=== PATIENT | male | born 1940 | race Caucasian/White ===

== ENCOUNTER 2018-10-17 06:24 | Inpatient (IN) | payer OTHER ==
[~2018-10-17] VITALS: Ht 170.2 cm; Wt 73.7 kg
[2018-10-17 06:27] VITALS: Ht 170.2 cm; Wt 73.7 kg
[2018-10-17 07:13] LABS: BASOPHIL % 0.3 % (0-2); PLATELET COUNT 179 x10^3mcL (130-400)
[2018-10-17 07:15] LABS: CALCIUM 8.5 mg/dL (8.5-10.1); CARBON DIOXIDE 24.5 mmol/L (21-32); CHLORIDE SERUM 105 mmol/L (98-107); GLUCOSE SERUM 138 mg/dL (74-106); POTASSIUM SERUM 3.5 mmol/L (3.5-5.1); SODIUM SERUM 140 mmol/L (136-145)
[2018-10-17 07:16] LABS: RED CELL DISTRIBUTION WIDTH 16.2 % (11.5-14.5)
[2018-10-17 07:19] LABS: ALBUMIN 2.8 g/dL (3.4-5.0); ALKALINE PHOSPHATASE 127 U/L (46-116); ALT/SGPT 48 U/L (16-63); AST/SGOT 47 U/L (15-37); BILIRUBIN TOTAL 0.3 mg/dL (0.20-1.00); LIPASE 1121 IU/L (73-393); TOTAL PROTEIN, SERUM 6.6 g/dL (6.4-8.2)
[2018-10-17 10:59] LABS: BASOPHIL % 0.1 % (0-2); PLATELET COUNT 131 x10^3mcL (130-400)
[2018-10-17] MEDS ORDERED: NOR5 PO (11:34)
[2018-10-17 12:36] VITALS: BP 125/54
[2018-10-17] MEDS ORDERED: DORZOLAMIDE HYD10 ML OD (17:30)
[2018-10-17] MEDS ORDERED: XALATAN2.5 ML OU (17:30)
[2018-10-17 18:15] VITALS: BP 137/55
[2018-10-17 20:56] VITALS: BP 130/60
[2018-10-18 05:44] VITALS: BP 111/54
[2018-10-18 06:17] LABS: CALCIUM 8.2 mg/dL (8.5-10.1); CARBON DIOXIDE 25.7 mmol/L (21-32); CHLORIDE SERUM 108 mmol/L (98-107); CREATININE SERUM 1.1 mg/dL (0.7-1.3); GLUCOSE SERUM 96 mg/dL (74-106); POTASSIUM SERUM 4.5 mmol/L (3.5-5.1); SODIUM SERUM 140 mmol/L (136-145)
[2018-10-18 07:38] LABS: BASOPHIL % 0.2 % (0-2); PLATELET COUNT 140 x10^3mcL (130-400); RED CELL DISTRIBUTION WIDTH 16.4 % (11.5-14.5)
[2018-10-18 10:00] VITALS: BP 113/56
[2018-10-18 18:51] VITALS: BP 130/55
[2018-10-18 20:39] VITALS: BP 142/51
[2018-10-19 05:54] VITALS: BP 127/49
[2018-10-19 08:00] VITALS: BP 134/53
[2018-10-19 11:40] VITALS: BP 121/55
[2018-10-19 12:30] VITALS: BP 133/58
== END 2018-10-19 14:04 | disposition home or self-care (01) | DRG 377 ==
LOC: ED 06:24 → DU 10:30
PROVIDERS: Emergency Medicine; Internal Medicine; ADMIT Internal Medicine
PROC: 0DB68ZX Excision of Stomach, Via Natural or Artificial Opening Endoscopic, Diagnostic (ICD-10-PCS; principal; 2018-10-18 08:30)
PROC: 0DBM8ZZ Excision of Descending Colon, Via Natural or Artificial Opening Endoscopic (ICD-10-PCS; 2018-10-19 12:30)
PROC: 0DBN8ZZ Excision of Sigmoid Colon, Via Natural or Artificial Opening Endoscopic (ICD-10-PCS; 2018-10-19 12:30)
DX: K29.71 Gastritis, unspecified, with bleeding (principal); K85.90 Acute pancreatitis without necrosis or infection, unspecified; I85.00 Esophageal varices without bleeding; E86.0 Dehydration; D12.4 Benign neoplasm of descending colon; D12.5 Benign neoplasm of sigmoid colon; I10 Essential (primary) hypertension; D64.9 Anemia, unspecified; Z68.25 Body mass index [BMI] 25.0-25.9, adult; Z86.010 Personal history of colon polyps
CPT/HCPCS: 43235; 45378; C9113; J1200; J1610; J2250; J2310; J2405; J2543; J3010; J3490; J7030; Q0092

== ENCOUNTER 2019-05-20 12:46 | Emergency (ER) | payer OTHER ==
[~2019-05-20] VITALS: Ht 172.7 cm; Wt 68.0 kg
[~2019-05-20 12:46] MED LIST: DORZOLAMIDE HYD10 ML OD; NOR5 PO; XALATAN2.5 ML OU
[2019-05-20 12:54] VITALS: Ht 172.7 cm; Wt 68.0 kg
[2019-05-20 13:09] LABS: PLATELET COUNT 104 x10^3mcL (130-400); RED CELL DISTRIBUTION WIDTH 16.4 % (11.5-14.5)
[2019-05-20 13:20] LABS: ALKALINE PHOSPHATASE 108 U/L (46-116); ALT/SGPT 37 U/L (16-63); AST/SGOT 27 U/L (15-37); BILIRUBIN TOTAL 0.5 mg/dL (0.20-1.00); CALCIUM 8.4 mg/dL (8.5-10.1); CARBON DIOXIDE 26.9 mmol/L (21-32); CHLORIDE SERUM 105 mmol/L (98-107); CREATININE SERUM 0.9 mg/dL (0.7-1.3); GLUCOSE SERUM 117 mg/dL (74-106); POTASSIUM SERUM 4.4 mmol/L (3.5-5.1); SODIUM SERUM 141 mmol/L (136-145)
[2019-05-20 13:21] LABS: ALBUMIN 3.1 g/dL (3.4-5.0)
[2019-05-20 13:38] LABS: BAND NEUTROPHIL 1 % (0-10); BASOPHIL 0 % (0-2); MONOCYTE 6 % (0-7); SEGMENTED NEUTROPHILS 69 % (37-75)
[2019-05-20 13:41] LABS: PLATELET MORPHOLOGY PLATELETS NORMAL; rbc morphology (normal/abnorm) NORMAL (NORMAL)
[2019-05-20 16:35] VITALS: BP 133/61
== END 2019-05-20 16:35 | disposition home or self-care (01) ==
LOC: ED 12:46
DX: R55 Syncope and collapse (principal); D61.818 Other pancytopenia; I10 Essential (primary) hypertension; T67.5XXA Heat exhaustion, unspecified, initial encounter; X58.XXXA Exposure to other specified factors, initial encounter; Y93.89 Activity, other specified; Y92.89 Other specified places as the place of occurrence of the external cause; Y99.8 Other external cause status
CPT/HCPCS: J7030; Q0092

== ENCOUNTER 2019-05-23 13:06 | Emergency (ER) | payer OTHER ==
[~2019-05-23] VITALS: Ht 175.3 cm; Wt 71.2 kg
[2019-05-23 13:12] VITALS: Ht 175.3 cm; Wt 71.2 kg
[2019-05-23 13:53] LABS: BASOPHIL % 0.2 % (0-2)
[2019-05-23 13:55] LABS: PLATELET COUNT 107 x10^3mcL (130-400); RED CELL DISTRIBUTION WIDTH 16.4 % (11.5-14.5)
[2019-05-23 13:59] LABS: CALCIUM 7.8 mg/dL (8.5-10.1); CARBON DIOXIDE 26.7 mmol/L (21-32); CHLORIDE SERUM 105 mmol/L (98-107); CREATININE SERUM 0.9 mg/dL (0.7-1.3); GLUCOSE SERUM 124 mg/dL (74-106); POTASSIUM SERUM 4.3 mmol/L (3.5-5.1); SODIUM SERUM 138 mmol/L (136-145)
[2019-05-23 14:06] LABS: ALBUMIN 3.4 g/dL (3.4-5.0); ALKALINE PHOSPHATASE 117 U/L (46-116); ALT/SGPT 30 U/L (16-63); AST/SGOT 24 U/L (15-37); BILIRUBIN TOTAL 0.42 mg/dL (0.20-1.00); TOTAL PROTEIN, SERUM 7.4 g/dL (6.4-8.2)
[2019-05-23 16:23] LABS: RED BLOOD CELLS 3.34 M/mm3 (4.52-5.90)
[2019-05-23 16:40] LABS: PHOSPHOROUS 2.9 mg/dL (2.5-4.9)
[2019-05-23 16:43] LABS: CHOLESTEROL/HDL RATIO 2.7
[2019-05-23 18:27] VITALS: BP 134/59
== END 2019-05-23 18:27 | disposition home or self-care (01) ==
LOC: ED 13:06
PROVIDERS: Emergency Medicine; Internal Medicine
DX: R42 Dizziness and giddiness (principal); D64.9 Anemia, unspecified; I10 Essential (primary) hypertension
CPT/HCPCS: J2405; J7030; J8597

== ENCOUNTER 2019-10-14 07:10 | Emergency (ER) | payer OTHER ==
[2019-10-14 07:19] VITALS: Ht 175.3 cm
[2019-10-14 07:57] LABS: BASOPHIL % 0.4 % (0-2); PLATELET COUNT 273 x10^3mcL (130-400); RED CELL DISTRIBUTION WIDTH 19.6 % (11.5-14.5)
[2019-10-14 08:03] LABS: CALCIUM 7.9 mg/dL (8.5-10.1); CARBON DIOXIDE 25.1 mmol/L (21-32); CHLORIDE SERUM 108 mmol/L (98-107); CREATININE SERUM 0.8 mg/dL (0.7-1.3); GLUCOSE SERUM 113 mg/dL (74-106); POTASSIUM SERUM 4.2 mmol/L (3.5-5.1); SODIUM SERUM 142 mmol/L (136-145)
[2019-10-14 08:14] LABS: ALKALINE PHOSPHATASE 137 U/L (46-116); ALT/SGPT 27 U/L (16-63); AST/SGOT 27 U/L (15-37); BILIRUBIN TOTAL 0.34 mg/dL (0.20-1.00); LIPASE 205 IU/L (73-393); T4(THYROXINE) 7.5 ug/dL (4.7-13.3)
[2019-10-14 08:16] LABS: ALBUMIN 2.3 g/dL (3.4-5.0); CHOLESTEROL 90 mg/dL (<200); HDL CHOLESTEROL 26 mg/dL (40-60)
[2019-10-14 11:24] LABS: microscopic required? NO
[2019-10-14 11:33] LABS: urine erythrocyte NEGATIVE (NEGATIVE)
[2019-10-14 11:39] VITALS: BP 120/64
[2019-10-14 12:41] LABS: AMPHETAMINE QUAL UR NONE DETECTED (See below)
[2019-10-14] MEDS ORDERED: PRESERVISION A1 EACH PO (14:34)
[2019-10-14] MEDS ORDERED: THE MEDICINE S400 I1 PO (14:34)
[2019-10-14] MEDS ORDERED: APAP500 MG PO (14:35)
[2019-10-14] MEDS ORDERED: CENTRUM SILVER1 EAC4 PO (14:35)
[2019-10-14] MEDS ORDERED: VIDAZA100 MG SC (14:36)
== END 2019-10-14 11:39 | disposition home or self-care (01) ==
LOC: ED 07:10
PROVIDERS: Emergency Medicine
DX: R53.1 Weakness (principal); R55 Syncope and collapse; D64.9 Anemia, unspecified; I10 Essential (primary) hypertension; I44.7 Left bundle-branch block, unspecified; Z85.830 Personal history of malignant neoplasm of bone
CPT/HCPCS: 36600; 83880; 87804; G0480; J1885; Q0092

== ENCOUNTER 2019-10-14 12:37 | Inpatient (IN) | payer OTHER ==
[~2019-10-14] VITALS: Ht 177.8 cm; Wt 76.2 kg
--- NOTE | 2019-10-14 13:06 | NUR ---
LAB DRAW IN PROGRESS.
--- NOTE | 2019-10-14 13:28 | NUR ---
PT VOMITING BRIGHT RED BLOOD WITH BIG MULTIPLE CLOTS. MD NOTIFIED AT THIS TIME.
--- NOTE | 2019-10-14 13:30 | NUR ---
REPORT ON PT GIVEN TO WAI SALOMON RN AT THIS TIME. FAMILY AT BEDSIDE
[2019-10-14 13:45] LABS: BASOPHIL % 0.3 % (0-2); PLATELET COUNT 291 x10^3mcL (130-400)
[2019-10-14 13:53] LABS: RED CELL DISTRIBUTION WIDTH 19.9 % (11.5-14.5)
--- NOTE | 2019-10-14 14:01 | NUR ---
BLOOD ADMINSTRATION INITIATED, DOTTY THURMAN.
--- NOTE | 2019-10-14 14:02 | NUR ---
PT ON FULL CM, FAMILY AT BEDSIDE.
[2019-10-14] MEDS ORDERED: PRESERVISION A1 EACH PO (14:34)
[2019-10-14] MEDS ORDERED: THE MEDICINE S400 I1 PO (14:34)
[2019-10-14] MEDS ORDERED: CENTRUM SILVER1 EAC4 PO (14:35)
[2019-10-14] MEDS ORDERED: APAP500 MG PO (14:35)
[2019-10-14] MEDS ORDERED: VIDAZA100 MG SC (14:36)
--- NOTE | 2019-10-14 14:36 | NUR ---
BLOOD TRANSFUSION COMPLETED, PT RESINT ON ED GURNEY, NO VOMITING AT THIS TIME, ON FULL CM, EQUAL CHEST RISE AND FALL. EDIL AND DAUGHTER PITO AT BEDSIDE.
--- NOTE | 2019-10-14 14:38 | NUR ---
PT STS PT'S LAST ONCOLOGIST VISIT WAS ON 09/30/19, LAST CHEMO OF VIDAZA WAS ON 09/23/19.
--- NOTE | 2019-10-14 15:30 | NUR ---
PT ASSISTED ONTO BEDPAN AND WITH URINAL, NO BM, APPROX 150CC OF DARK YELLOW URINE VOIDED.
--- NOTE | 2019-10-14 15:42 | NUR ---
PER MIGUEL ÁNGEL FROM BLOOD BANK, BLOOD FOR PT WILL BE READY IN APPROX 45 MINS. KRISTIN ICU NURSE MADE AWARE. DR STUBBS MADE AWARE.
--- NOTE | 2019-10-14 15:51 | NUR ---
PT VOMITING BLODDY EMESIS AT THIS TIME WITH APPROX 400CC WITH CLOTS.
[2019-10-14 16:21] VITALS: BP 122/47
[2019-10-14 17:29] VITALS: BP 1114/53; BP 114/53
[2019-10-14 17:45] VITALS: BP 122/59
--- NOTE | 2019-10-14 17:49 | NUR ---
AT 1600 - RECEIVED PATIENT FROM ER NURSE. SETTLED IN ROOM AND ORIENTED TO SURROUNDINGS AND PLACED ON CARDIAC MONITORING. ADMITTED WITH GI BLEED. PATIENT IS AWAKE, ALERT AND ORIENTED X 4 BUT APPEARS FORGETFUL. ABLE TO ANSWER QUESTIONS. HISTORY AND ASSESSMENT OBTAINED FROM PATIENT. BP STABLE AT THIS TIME. RESPIRATIONS REGULAR. O2 SAT 99% ON ROOM AIR. MONITOR SHOWING SINUS RHYTHM; RATE 98%. ABDOMEN SOFT. C/O ABDOMINAL PAIN /. NO C/O NAUSEA AT THIS TIME. AT 1615 - CHARGE NURSE SPOKE WITH DR LUCAS PER PHONE AND OBTAINED ADMISSION ORDERS. PATIENT TO RECEIVE ONE MORE UNIT OF BLOOD AND THEN H/H TO BE CHECKED. MRSA NARES COLLECTED AND TAKEN TO LAB. AT 1654 - MEDICATED WITH IV MORPHINE 1 MG PER EMAR FOR ABDOMINAL PAIN. FAMILY MEMBERS AT BEDSIDE. TODAY IS PATIENT'S BIRTHDAY. AT 1716 - MEDICATED WITH IV ZOFRAN FOR NAUSEA. AT 1730 - COMMENCED BLOOD TRANSFUSION OF PRBC. THIS IS PATIENT'S SECOND UNIT. AT 1745 - SEEN BY DR ROCK. EXAMINED PATIENT AND SPOKE WITH FAMILY AT LENGTH REGARDING PLAN OF TREATMENT.
[2019-10-14 18:30] VITALS: BP 117/60
--- NOTE | 2019-10-14 19:00 | NUR ---
RECIEVED REPORT FROM WATCH REPAIRER. NURSING UPDATES POC DISCUSSED. SEE SHIFT ASSESSMENT FOR ASSESSMENT.
--- NOTE | 2019-10-14 19:26 | NUR ---
AT 1800 - DR ROCK SPOKE WITH FAMILY ABOUT PLAN FOR EGD TOMORROW. PATIENT'S DAUGHTER SIGNED CONSENTS FOR EGD AND MODERATE SEDATION. AT 1815 - COMMENCED ON ROCEPHIN. FIRST DOSE IN PROGRESS. AT 1840 - PATIENT PLACED ON BEDPAN FOR SENSATION OF NEED TO HAVE BOWEL MOVEMENT. NOT ABLE TO HAVE BM AT THIS TIME. AT 1900 - ULTRASOUND AT BEDSIDE FOR ABDOMINAL U/S. AT 1910 - COMMENCED ON SANDOSTATIN INFUSION AT 50 MCG /HR IN RAC. BLOOD TRANSFUSION CONTINUING IN LAC. VS REMAIN STABLE. CARE ENDORSED TO NIGHT NURSE. AT 1920 - WHILST TURNING IN BED FOR ULTRASOUND REQUIREMENTS, PATIENT VOMITED BRIGHT BLOOD. REIMBURSEMENT LIAISON COMPLETING ULTRASOUND. NIGHT NURSE AT BEDSIDE.
--- NOTE | 2019-10-14 19:30 | NUR ---
PT W/ BLOODY CLOTTED EMESIS ESTIMATED @ 200ML. ROOM CLEANED AND LINENS CHANGED.
[2019-10-14 20:05] VITALS: BP 117/60
--- NOTE | 2019-10-14 21:26 | NUR ---
ADM PRN MORPHINE PER PT STATING RUBY 04/14 ABD GENERALIZED. CALMING MEASURES ATTEMPTED W/ NO AVAIL. WILL CONT TO MONITOR.
--- NOTE | 2019-10-14 22:12 | NUR ---
DAUGHTER KARELY NOTIFIED TO CALL IF ANYTHING HAPPENS. STATED WILL BE BACK AT 0900 10/15. [phone].
--- NOTE | 2019-10-14 23:02 | NUR ---
PT COMPLAINING OF "REALLY BAD" TOOTH PAIN. STATED THAT WHATEVER THEY GAVE HIM IN ER HELPED RELIEF AND THAT THE MORPHINE HAS NOT HELPED. ADM LAST MALHOTRA SEE MAR.
[2019-10-14 23:20] VITALS: BP 131/58
--- NOTE | 2019-10-15 00:07 | NUR ---
REPORT GIVEN TO DRY CLEANING SUPERVISOR. NURSING UPDATES. POC DISCUSSED. RELIEVED OF PT DUTIES.
--- NOTE | 2019-10-15 00:18 | NUR ---
RECEIVED PATIENT IN BED APPEAR TO BE SLEEPING WITH NO INDICATION OF PAIN AND DISCOMFORT NOTED, MORPHINE 1MG IVP GIVEN EARLIER BY WRAPPER OPENER NELSON. REPORT GIVEN. WILL CONTINUE TO MONITOR.
--- NOTE | 2019-10-15 03:52 | NUR ---
AWAKE THIS TIME DENIES PAINA ND DISCOMFORT. VOIDED WITH USED OF URINAL AROUND 350ML. WILL CONTINUE TO MONITOR.
[2019-10-15 04:06] VITALS: BP 124/46
--- NOTE | 2019-10-15 05:16 | NUR ---
HAD BM LOOSE CHARCOAL LIKE COLOR IN LARGE AMOUNT. KEPT ON NPO. CHECKED AT INTERVALS FOR NEEDS AND SAFETY. REPOSITIONED FOR COMFORT.
[2019-10-15 05:46] LABS: CARBON DIOXIDE 21.5 mmol/L (21-32); CHLORIDE SERUM 116 mmol/L (98-107); GLUCOSE SERUM 139 mg/dL (74-106); POTASSIUM SERUM 4.5 mmol/L (3.5-5.1); SODIUM SERUM 146 mmol/L (136-145)
[2019-10-15 05:47] LABS: BASOPHIL % 0.3 % (0-2)
[2019-10-15 05:48] LABS: PLATELET COUNT 474 x10^3mcL (130-400); RED CELL DISTRIBUTION WIDTH 24.8 % (11.5-14.5)
--- NOTE | 2019-10-15 06:47 | NUR ---
H/H-7.3/, I UNIT PRBC STARTED PER DR LUCAS'S ORDER. NO ADVERSE REACTION NOTED. VITAL SIGNS TAKEN AND RECORDED. BP-115/65, T-98.4, HR-97, R-18 SATTING AT 100% RA. WILL ENDORSE CONTINOUS MONITORING TO AM SHIFT.
[2019-10-15 07:30] VITALS: BP 139/68
--- NOTE | 2019-10-15 07:30 | NUR ---
RECEIVED PT RESTING IN BED. SLEEPING BUT EASILY AROUSABLE. RESP EVEN AND UNLABORED ON RA. NO PAIN NOTED. BOWEL SOUNDS ACTIVE, ABD SOFT, NON-TENDER. NO BM NOTED AT THIS TIME. NPO EXCEPT MEDS. VOIDING FREELY. BLOOD TRANSFUSION INFUSING TO LAC AT 100 ML/HR, NO REDNESS OR SWELLING TO IV SITE. NO ADVERSE REACTIONS NOTED AT THIS TIME. SANDOSTATIN INFUSING AT 25 ML/HR TO RAC, NO REDNESS OR SWELLING NOTED. GEN WEAKNESS, ABLE TO REPOSITION SELF IN BED. PALE SKIN. HOB SLIGHTLY ELEVATED. BED IN LOW POSITION, CALL LIGHT WITHIN REACH. WILL CONTINUE TO MONITOR.
--- NOTE | 2019-10-15 08:36 | NUR ---
GI LAB STAFF AT BEDSIDE, PT GETTING EGD DONE AT THIS TIME. NO ACUTE DISTRESS. WILL CONTINUE TO MONITOR.
--- NOTE | 2019-10-15 09:02 | NUR ---
EGD DONE AT THIS TIME. PT IN NO ACUTE DISTRESS. RESTING IN BED. RESP EVEN AND UNLABORED ON 2L NC. NO PAIN NOTED. PRBC INFUSING AT 100 ML/HR AND SANDOSTATIN INFUSING AT 25 ML/HR, NO REDNESS OR SWELLING TO IV SITE. HOB ELEVATED. CALL FALL PRECAUTIONS. WILL CONTINUE TO MONITOR.
[2019-10-15 10:00] VITALS: BP 152/78
--- NOTE | 2019-10-15 10:00 | NUR ---
PRBC TRANSFUSION DONE. NO ADVERSE REACTIONS NOTED. PT RESTING IN BED. NO ACUTE DISTRESS. AAOX4. RESP EVEN AND UNLABORED ON 2L NC. VS: TEMP 96.8, HR 95, RR 12, BP 152/78, O2 SAT 100%. IV TO RAC AND LAC WITH NO REDNESS OR SWELLING. CALL LIGHT WITHIN REACH. HOB ELEVATED. FAMILY AT BEDSIDE. WILL CONTINUE TO MONITOR.
[2019-10-15 11:39] VITALS: Ht 177.8 cm; Wt 76.2 kg
[2019-10-15 11:45] VITALS: BP 134/63
--- NOTE | 2019-10-15 11:48 | NUR ---
SHIFT REASSESSMENT DONE. PT RESTING IN BED. AAOX4. RESP EVEN AND UNLABORED ON RA. PT HAD MODERATE DARK COLORED LIQUIDY STOOL, PT CLEANED AND LINENS CHANGED. PT VOIDING USING URINAL. GEN WEAKNESS. SANDOSTATIN INFUSING AT 25 ML/HR. IV TO RAC AND LAC WITH NO REDNESS OR SWELLING. PT REPOSITIONS SELF IN BED. GEN WEAKNESS, PALE SKIN. FAMILY AT BEDSIDE. CALL LIGHT WITHIN REACH. WILL CONTINUE TO MONITOR.
--- NOTE | 2019-10-15 14:07 | NUR ---
SPOKE WITH DR. ROCK AND PATIENT IS CLEARED TO TRANSFER TO TELE.
--- NOTE | 2019-10-15 16:41 | NUR ---
PT HAD SMALL BROWN COLORED BM. PT CLEANED AND MADE COMFORTABLE. WILL CONTINUE TO MONITOR.
--- NOTE | 2019-10-15 16:50 | NUR ---
REPORT GIVEN TO BEV STORM. PT GOING TO ROOM 209B. PT AND FAMILY AWARE.
[2019-10-15 17:09] VITALS: BP 147/74
--- NOTE | 2019-10-15 17:15 | NUR ---
RECEIVED PT FROM ICU BED 9. REPORT RECEIVED FROM JESSIE STORM. PT ALERT AND ORIENTED. NO BLEEDING NOTED. RESTARTED SANDOSTATIN AND D51/2 NS. TELE # 15 STR W BBB. CALL LIGHT WITHIN REACH.
--- NOTE | 2019-10-15 19:19 | NUR ---
RESTING QUIETLY IN BED WITH AT BEDSIDE. TYLENOL HELPFUL FOR TOOTH ACHE PAIN. D5 1/2 NS INFUSING 50 CC HOUR, SANDOSTATIN INFUSING 25 CC HOUR. CONTINUES ON ROCEPHIN IV ABX. TELE # 15 SR W BBB. CALL LIGHT WITHIN REACH. BREATHING FREELY ON RA. ALERT AND ORIENTED. USES BED LEO AND URINAL AT SAME TIME. BROWN WATERY STOOL, NO LONGER TARRY.
--- NOTE | 2019-10-15 20:00 | NUR ---
RECEIVED HAND OFF REPORT FROM DAY NURSE. PATIENT LAYING SEMIFOWLERS IN HOSPITAL BED WITH X3 FAMILY MEMBERS AT BEDSIDE. A/O X4, NO COMPLAINTS OF PAIN, TELE 15 PRESENT ON PATIENT CHEST, SHOWING NSR WITH BBB. IVS INFUSING WELL, CALL LIGHT WITHIN REACH. WILL CONTINUE TO MONITOR
[2019-10-15 20:38] VITALS: BP 137/53
--- NOTE | 2019-10-15 22:45 | NUR ---
ADMINSTERED MEDICATIONS PER MAR, EDUCATED ABOUT NEW PRESCRIPTION FOR XIFAXAN. UNDERSTANDING OF EDUCATION AND PRESCRIPTION. REQUESTING TO REST AT THIS TIME. CALL LIGHT WITHIN REACH
[2019-10-16] VITALS (7 sets, daily range): BP systolic 112–155; BP diastolic 32–62
--- NOTE | 2019-10-16 00:51 | NUR ---
PATIENT COMPLAIING OF TOOTH PAIN, REQYESTED TYLENOL, STATING THAT WORKED FOR HIM LAST TIME THE PAIN CAME. PATIENT STOOD NER IS OWN POWER TO URINATE WITH URINAL. 100MLS CALL LIGHT WITHIN REACH, ENCOURAGED PATIENT TO REST
--- NOTE | 2019-10-16 04:12 | NUR ---
PATIENT VISUALIZED SLEEPING AT THIS TIME. NO DISTRESS NOTED. BREATHING REGULAR AND UNLABORED. CALL LIGHT WITHIN REACH ON BED
[2019-10-16 06:27] LABS: PLATELET COUNT 302 x10^3mcL (130-400)
[2019-10-16 06:51] LABS: CALCIUM 6.8 mg/dL (8.5-10.1); CARBON DIOXIDE 25.2 mmol/L (21-32); CHLORIDE SERUM 107 mmol/L (98-107); CREATININE SERUM 0.8 mg/dL (0.7-1.3); GLUCOSE SERUM 117 mg/dL (74-106); POTASSIUM SERUM 3.4 mmol/L (3.5-5.1); SODIUM SERUM 136 mmol/L (136-145)
--- NOTE | 2019-10-16 07:45 | NUR ---
ALERT AND ORIENTED WITH FORGETFULNESS AND GENERALIZED WEAKNESS. BREATHING FREELY ON RA. NO C/O PAIN AT THIS TIME. SANDOSTATIN INFUSING 25 CC HOUR. D5 1/2 NS INFUSING 50 CC HOUR TO LEFT AC WHICH IS BECOMING INFILTRATED. IV STOPPED UNTIL NEW IV SITE CAN BE INSERTED. CALL LIGHT WITHIN REACH.
[2019-10-16 07:46] LABS: RED CELL DISTRIBUTION WIDTH 22.9 % (11.5-14.5)
--- NOTE | 2019-10-16 19:42 | NUR ---
PT C/O ABD DISCOMFORT BUT NOT NAUSEA OR ACTUAL PAIN. SAT PT UP AT EDGE OF BED AND HE BEGAN BURPING. POOR APPETITE ON FULL LIQUIDS. NO THROAT PAIN. TYLENOL HELPFUL FOR TOOTH PAIN. FAMILY STAYS WITH PT. D5 / NS TO BE DC'D WHEN CURRENT BAG COMPLETED. SANDOSTATIN TO BE DC'D 10/[address] ORTEGA. PT TO START P.T. AMBULATE PT TO BR WITH ASSIST IF POSSIBLE. PT HAS BEEN VERY WEAK AND REMAINS SO. CONTINUES ON ROCEPHIN. VSS. HAS BEEN USING URINAL AND BEDPAN. CALL LIGHT WITHIN REACH.
--- NOTE | 2019-10-16 19:50 | NUR ---
PT SEEN, SITTING UP AT EDGE OF BED, ALERT AND ORIENTED X 3 WITH PERIODS OF FORGETFUL, DENIES HEADACHE OR DIZZINESS, BREATHING EVEN AND UNLABORED, LUNG SOUNDS CLEAR BUT DIMINISHED AT BASE, ON TELE#15 NSR, DENIES CHEST PAIN, IVF INFUSING WELL WITH SANDOSTATIN DRIP @ 25 ML/HR, PER DR Kelly ROCK DC THE DRIP TOMORROW 10 AM, PT C/O OF ABD PAIN PER DR Kelly ROCK DO NOT GIVE MORPHINE, NEW ORDER RECEIVED FOR ULTRAM PO, NO DISTRESS NOTED, WILL KEEP TO MONITOR
--- NOTE | 2019-10-16 23:21 | NUR ---
ROUNDS MADE, PT ASLEEP AND APPEARS COMFORTABLE, BREATHING EVEN AND UNLABORED ON ROOM AIR, IVF INFUSING WELL WITH SANDOSTATIN @ 25 ML/HR, SIDE RAILS UP, BED ALARM ON, NO DISTRESS NOTED, WILL KEEP TO MONITOR.
[2019-10-17] VITALS (7 sets, daily range): BP systolic 107–137; BP diastolic 45–110
--- NOTE | 2019-10-17 05:57 | NUR ---
PT ASLEEP BUT EASILY AROUSABLE, SLEPT WITH LONG INTERVAL AFTER MEDICATED WITH AMBIEN PO X 2, GAVE ONE TIME TRAMADOL PO X 1 FOR ABD PAIN WITH GOOD RELIEF, IVF STILL INFUSING WITH SANDOSTATIN @ 25 ML/HR, NO DISTRESS NOTED, WILL KEEP TO MONITOR.
[2019-10-17 07:01] LABS: PLATELET COUNT 244 x10^3mcL (130-400)
[2019-10-17 07:02] LABS: CALCIUM 6.8 mg/dL (8.5-10.1); CARBON DIOXIDE 26.3 mmol/L (21-32); CHLORIDE SERUM 110 mmol/L (98-107); CREATININE SERUM 0.9 mg/dL (0.7-1.3); GLUCOSE SERUM 111 mg/dL (74-106); POTASSIUM SERUM 3.9 mmol/L (3.5-5.1); SODIUM SERUM 142 mmol/L (136-145)
--- NOTE | 2019-10-17 07:15 | NUR ---
BEDSIDE HANDOFF REPORT GIVEN TO STEVEN-RN, ALL QUESTIONS ANSWERED AND CONCERNS ADDRESSED.
--- NOTE | 2019-10-17 08:05 | NUR ---
PATIENT SAT UP AT SIDE OF BED EATING BREAKFAST, NO DISTRESS NOTED. NO PAIN. REINFORCED TO LEAVE IV SITE ALONE, TELE15 SR, BBB W/ HR 74 NOTED. CALL LIGHT WITHIN REACH.
--- NOTE | 2019-10-17 09:17 | NUR ---
DR. ROCK HERE TO SEE PATIENT AND UPDATE PATIENT'S CONDITION, REPORT H/H 6.7 AND 20 WITH NEW ORDER FOR BLOOD TRANSFUSION 2 UNIT PRBC.
--- NOTE | 2019-10-17 09:32 | NUR ---
PATIENT RESTING IN BED HOB ELEVATED, ALL PO MEDS AND TRAMADOL PO ADMINISTERED, PATIENT CALLING "PAIN, PAIN" BUT WHEN NURSE CAME BACK WITH PAIN MED PATIENT SAID "NO MORE PAIN. GAVE TRAMADOL ANYWAY. FAMILY MEMBERS JUST WALK IN AND WILL GET CONSENT FOR BLOOD TRANSFUSION.
--- NOTE | 2019-10-17 09:42 | NUR ---
DTR REJI WAS UPDATE WITH LABS : H/H .04/[address] ROCK ORDER BLOOD TRANSFUSION, DTR SIGN CONSENT FOR BLOOD TRANSFUSION, QUESTIONS ADDRESSED.
--- NOTE | 2019-10-17 11:40 | NUR ---
PATIENT RESTING IN BED WITH FAMILY MEMBERS AT BEDSIDE, NO C/O PAIN. SET UP BLOOD TRANSFUSION SET, BLOOD BANK DID CALL YET. CONT TO MONITOR.
[2019-10-17 12:45] LABS: rbc morphology (normal/abnorm) ABNORMAL (NORMAL)
--- NOTE | 2019-10-17 13:41 | NUR ---
ASSISTING PATIENT SAT UP AT SIDE OF BED FOR LUNCH, INCONT OF STOOL DUE TO LACTULOSE. ASSISTING PATIENT TO BATHROOM, MIN ASSIST PATIENT WALK W/ STEADY GAIT, JUST SLOW. BACK TO BED SAT UP AT SIDE OF BED FOR LUNCH, FAMILY MEMBERS AT BEDSIDE. NEEDS MET. CALL LIGHT WITHIN REACH.
--- NOTE | 2019-10-17 14:55 | NUR ---
PATIENT RESTING IN BED NO C/O PAIN. VITALS BP 120/50, HR 71, RR 18, T 98.3 FIRST PRBC STARTED MONITOR FOR 15 MIN NO REACTION NOTED. IV TO RFA PATENT NO SWELLING NOTED. FAMILY REAMAIN AT BEDSIDE. CONT TO MONITOR.
--- NOTE | 2019-10-17 16:09 | NUR ---
PATIENT SLEEPING NO DISTRESS NOTED, FAMILY MEMBERS REMAIN AT BEDSIDE. BLOOD INFUSING WELL, NO REACTIONED, DENIES PAIN OR SOB. IV SITE PATENT. CALL LIGHT WITHIN REACH.
--- NOTE | 2019-10-17 17:25 | NUR ---
PATIENT RESTING IN BED CALM AND AWAKEN, NO DISTRESS NOTED. FIRST UNIT OF PRBC COMPLETED, VITALS STABLE, NO REACTION NOTED. NEW IV STARTED TO CARA #2G WITH GOOD BLOOD RETURN AND SECURED, REMOVED LFA IV DUE TO LEAKING WHEN FLUSH, CATHETER INTACT, GAUZES APPLIED TO SITE. CONT TO MONITOR.
--- NOTE | 2019-10-17 17:30 | NUR ---
PATIENT RESTING IN BED NO COMPLAIN, MEDICATED WITH TYLENOL 650MG PO FOR T 101.3 AND COOLING MEASURES PROVIDED. ZOSYN IVPB INFUSING AT RATE 100ML/HR TO LFA IV PATENT. CONT TO MONITOR
--- NOTE | 2019-10-17 18:00 | NUR ---
2ND UNIT PRBC STARTED TO CARA IV PATENT, VITALS BP 118/53, HR 67, RR 18, T 97.7 CONT TO MONITOR, AFTER 15MIN NO RACTION NOTED, NO PAIN OR SOB NOTED. NO DISTRESS NOTED. FAMILY MEMBERS AT BEDSIDE. BED ALARM IN PLACE. CALL LIGHT WITHIN REACH.
--- NOTE | 2019-10-17 19:35 | NUR ---
RECEIVED PT FROM DAY SHIFT RN. PT ALERT ORIENTED TO SELF/BIRTHDAY AND PLACE. PT SEEMS FORGETFUL/CONFUSED AT TIMES. BREATHING EVEN AND UNLABORED ON RA WITH NO SOB NOTED. IV TO LFA PATENT, INFUSING BLOOD TRANSFUSION AT 125ML/HR. NO ACTIVE BLEEDING. FAMILY AT BEDSIDE. NO ACUTE DISTRESS NOTED. CALL BUTTON WITHIN REACH. SAFETY PRECAUTIONS IN PLACE. WILL CONTINUE TO MONITOR.
--- NOTE | 2019-10-17 21:00 | NUR ---
BLOOD TRANSFUSION DONE INFUSING AT THIS TIME. VS STABLE. LASIX IVP MEDICATED PER EMAR. NO ACTIVE BLEEDING. NO ADVERSE REACTIONS. FAMILY AT BEDSIDE. NO ACUTE DISTRESS NOTED. CALL BUTTON WITHIN REACH. SAFETY PRECAUTIONS IN PLACE. WILL CONTINUE TO MONITOR.
--- NOTE | 2019-10-18 00:54 | NUR ---
PT RESTING. BREATHING EVEN AND UNLABORED ON RA WITH NO SOB NOTED. NO ACUTE DISTRESS NOTED. CALL BUTTON WITHIN REACH. SAFETY PRECAUTIONS IN PLACE. WILL CONTINUE TO MONITOR.
[2019-10-18 05:41] VITALS: BP 115/54
--- NOTE | 2019-10-18 06:06 | NUR ---
PT AWAKE DENIES PAIN. NO ACUTE DISTRESS NOTED. PT SLEPT MOST OF THE NIGHT. BREATHING EVEN AND UNLABORED ON RA. AMBULATORY. IV PATENT, SL. NO ACTIVE BLEEDING. CALL BUTTON WITHIN REACH. SAFETY PRECAUTIONS IN PLACE. WILL ENDORSED CARE TO DAY SHIFT RN, ALL QUESTIONS ADDRESSED.
--- NOTE | 2019-10-18 07:30 | NUR ---
RECEIVED PATIENT. IN BED, SLEEPING. EASILY AROUSABLE. AAOX2. NO ACUTE RESP DISTRESS NOTED. REMAINS ON ROOM AIR. NO C/O PAIN AT THIS TIME. LFA SALINE LOCK, NO INFILTRATION OR REDNESS NOTED. SAFETY PRECAUTION IN PLACE. CALL LIGHT WITHIN REACH. WILL CONTINUE TO MONITOR.
--- NOTE | 2019-10-18 07:38 | NUR ---
PT AWAKE DENIES PAIN. NO ACUTE DISTRESS NOTED. ENDORSED CARE TO DAY SHIFT RN, ALL QUESTIONS ADDRESSED.
[2019-10-18 09:17] VITALS: BP 107/56
--- NOTE | 2019-10-18 09:17 | NUR ---
PATIENT IN BED, STABLE. NO ACUTE RESP DISTRESS NOTED. NO COMPLAINTS OF PAIN AT THIS TIME. IV INTACT AND PATENT. NO ERYTHEMA/INFILTRATION NOTED. SAFETY PRECAUTION IN PLACE. CALL LIGHT WITHIN REACH. WILL CONTINUE TO MONITOR.
[2019-10-18 10:41] LABS: BASOPHIL % 0.5 % (0-2); PLATELET COUNT 269 x10^3mcL (130-400)
[2019-10-18 10:58] LABS: RED CELL DISTRIBUTION WIDTH 19.5 % (11.5-14.5)
--- NOTE | 2019-10-18 11:40 | NUR ---
SPOKE WITH DR. LUCAS REGARDING HGB 9.5 AND HCT 29 RESULTS POST BLOOD TRANSFUSION. PER DR. LUCAS, HE WILL START WORKING ON DISCHARGE. WILL CONTINUE TO MONITOR.
--- NOTE | 2019-10-18 12:28 | NUR ---
PATIENT IN BED, STABLE. NO ACUTE RESP DISTRESS NOTED. NO COMPLAINTS OF PAIN AT THIS TIME. IV INTACT AND PATENT. NO ERYTHEMA/INFILTRATION NOTED. SAFETY PRECAUTION IN PLACE. CALL LIGHT WITHIN REACH. WILL CONTINUE TO MONITOR. SPOKE WITH PATIENT AND FAMILY REGARDING PLAN OF CARE. FAMILY NOTED TO BE HESITANT ABOUT DISCHARGE. EDUCATED FAMILY THAT PATIENT IS STABLE TO GO ACCORDING TO DR. ROCK AND DR. LUCAS. FAMILY REQUESTED TO SPEAK PERSONALLY WITH DR. LUCAS. 12:30: SPOKE WITH DR. LUCAS REGARDING FAMILY REQUEST TO SPEAK WITH HIM. PER. DR. LUCAS, HE CAN TALK WTH PT FAMILY THROUGH PHONE. PHONE IMMEDIATELY GIVEN TO DAUGHTER WHILE DR. LUCAS REMAINS ON LINE. 12:40: SPOKE WITH FAMILY MEMBER. PER DAUGHTER, DR. LUCAS EXPLAINED EVERYTHING WELL. ALL QUESTIONS AND CONCERNS ADDRESSED. HOWEVER, PT WOULD STILL LIKE TO SIGN APPEAL FORM SHE DOES NOT FEEL COMFORTABLE ENOUGH TO TAKE PATIENT HOME. NOTIFIED CHARGE NURSE, HUY AND SHE IMMEDIATELY CALLED TO CASE MANAGEMENT TO START THE APPEAL PROCESS. WILL CONTINUE TO MONITOR.
[2019-10-18 12:57] VITALS: BP 116/49
--- NOTE | 2019-10-18 13:00 | NUR ---
PER PATIENT FAMILY, THEY HAVE CHANGED THE DECISION TO SIGN APPEAL FORM AND WILL JUST TAKE PATIENT HOME. WILL START TO WORK ON DISCHARGE PAPERS. WILL CONTINUE TO MONITOR.
[2019-10-18 13:36] VITALS: BP 116/49
--- NOTE | 2019-10-18 13:45 | NUR ---
DISCHARGE HOME INSTRUCTIONS GIVEN TO PATIENT AND FAMILY. PATIENT VERBALIZED UNDERSTANDING. ALL QUESTIONS AND CONCERNS ADDRESSED. INSTRUCTED TO CALL PRIOR LEAVING THE UNIT. D/C IV, CATHETER INTACT. TOLERATED WELL. GAUZE AND TAPE IN PLACE.
--- NOTE | 2019-10-18 14:15 | NUR ---
PATIENT IS BEING DISCHARGED IN STABLE CONDITION. ID BAND REMOVED. ALL BELONGINGS SENT HOME WITH PATIENT. PATIENT AND FAMILY ACCOMPANIED TO LOBBY BY [employer] VIA WHEELCHAIR. TELE MONITOR RETURNED TO MONITOR STATION. ALL NEEDS MET.
== END 2019-10-18 14:20 | disposition home health service (06) | DRG 432 ==
LOC: ED 12:37 → IC 14:19 → DU 14:19 → IC 14:47 → DU 10-15 17:04
PROVIDERS: Emergency Medicine; Internal Medicine Gastroenterology; ADMIT Internal Medicine
PROC: 30233N1 Transfusion of Nonautologous Red Blood Cells into Peripheral Vein, Percutaneous Approach (ICD-10-PCS; 2019-10-14)
PROC: 0DB78ZX Excision of Stomach, Pylorus, Via Natural or Artificial Opening Endoscopic, Diagnostic (ICD-10-PCS; principal; 2019-10-15 11:00)
PROC: 06L38CZ Occlusion of Esophageal Vein with Extraluminal Device, Via Natural or Artificial Opening Endoscopic (ICD-10-PCS; 2019-10-15 11:00)
DX: K74.60 Unspecified cirrhosis of liver (principal); I85.11 Secondary esophageal varices with bleeding; D50.0 Iron deficiency anemia secondary to blood loss (chronic); D75.9 Disease of blood and blood-forming organs, unspecified; K72.90 Hepatic failure, unspecified without coma; R41.0 Disorientation, unspecified; I11.9 Hypertensive heart disease without heart failure; I25.10 Atherosclerotic heart disease of native coronary artery without angina pectoris; J44.9 Chronic obstructive pulmonary disease, unspecified; Z68.26 Body mass index [BMI] 26.0-26.9, adult
CPT/HCPCS: 43235; 82962; 97116-GP; C9113; G0378; J0171; J0696; J1200; J1610; J1885; J1940; J2250; J2270; J2310; J2354; J2405; J2765; J3010; J3490; J7030; J7040; J7042; J7050; P9016; Q0092